=== PATIENT | male | born 1940 | race African-American/Black ===

== ENCOUNTER 2016-12-01 06:50 | Day surgery (SDC) | payer OTHER, MEDICARE ==
[2016-12-01] MEDS ORDERED: NS 500 ML IV 500 ML IV ONE (07:24)
[2016-12-01] MEDS ORDERED: TETRACAINE 0.5% OPHTH 1 DOSE AFFEYE ONE ×4 (07:55→10:38)
[2016-12-01] MEDS ORDERED: VIGAMOX 0.5% OPHTH 1 DOSE AFFEYE ONE ×5 (07:56→10:51)
[2016-12-01] MEDS ORDERED: PROLENSA OPHTH 1 DOSE AFFEYE ONE (08:07)
[2016-12-01] MEDS ORDERED: ALPHAGAN-P OPHTH 1 DOSE AFFEYE ONE (08:08)
[2016-12-01] MEDS ORDERED: VISINE-A OPHTH 1 DOSE AFFEYE ONE (08:09)
[2016-12-01] MEDS ORDERED: AK-DILATE 2.5% OPHTH 1 DOSE OP ONE ×4 (08:10→08:13)
[2016-12-01] MEDS ORDERED: MYDRIACIL OPHTH 1 DOSE AFFEYE ONE ×4 (08:10→08:13)
[2016-12-01] MEDS ORDERED: CYCLOGYL 1% OPHTH 1 DOSE OP ONE ×4 (08:10→08:13)
[2016-12-01] MEDS ORDERED: BETADINE OPHTH SOLN 5% EACHEYE ONE (10:22)
[2016-12-01] MEDS ORDERED: XYLOCAINE-MPF 1% IJ ONE ×2 (10:26→10:38)
[2016-12-01] MEDS ORDERED: ADRENALINE CHL INJ IJ ONE ×2 (10:26→10:38)
[2016-12-01] MEDS ORDERED: DUOVISC IO ONE ×2 (10:26→10:38)
[2016-12-01] MEDS ORDERED: BSS OPHTH (PLAIN) 500 ML with VANCOMYCIN HCL 500 MG VIAL 25 MG, ADRENALINE CHL INJ 1 MG IR ONE ×6 (10:26)
[2016-12-01 13:37] VITALS: BP 115/76
[2016-12-01] MEDS ORDERED: DIPRIVAN VIAL ONE (13:47)
== END 2016-12-01 11:15 | disposition home or self-care (01) ==
LOC: SURG1 06:50
PROVIDERS: ATTEND Ophthalmology
PROC: 08RJ3JZ Replacement of Right Lens with Synthetic Substitute, Percutaneous Approach (ICD-10-PCS; principal; 2016-12-01 12:30)
PROC: 08DJ3ZZ Extraction of Right Lens, Percutaneous Approach (ICD-10-PCS; principal; 2016-12-01 12:30)
DX: H25.11 Age-related nuclear cataract, right eye (principal); H25.011 Cortical age-related cataract, right eye
CPT/HCPCS: 99100; A4217; J0170; J3370; J3490

== ENCOUNTER 2016-12-22 10:26 | Day surgery (SDC) | payer OTHER, MEDICARE ==
[2016-12-22] MEDS ORDERED: NS 500 ML IV 500 ML IV ONE (10:35)
[2016-12-22] MEDS ORDERED: TETRACAINE 0.5% OPHTH 1 DOSE AFFEYE ONE ×4 (10:55→14:31)
[2016-12-22] MEDS ORDERED: VIGAMOX 0.5% OPHTH 1 DOSE AFFEYE ONE ×5 (10:56→14:43)
[2016-12-22] MEDS ORDERED: PROLENSA OPHTH 1 DOSE AFFEYE ONE (11:07)
[2016-12-22] MEDS ORDERED: ALPHAGAN-P OPHTH 1 DOSE AFFEYE ONE (11:08)
[2016-12-22] MEDS ORDERED: MYDRIACIL OPHTH 1 DOSE AFFEYE ONE ×4 (11:09→11:12)
[2016-12-22] MEDS ORDERED: CYCLOGYL 1% OPHTH 1 DOSE OP ONE ×4 (11:09→11:12)
[2016-12-22] MEDS ORDERED: AK-DILATE 2.5% OPHTH 1 DOSE OP ONE ×4 (11:09→11:12)
[2016-12-22] MEDS ORDERED: BETADINE OPHTH SOLN 5% EACHEYE ONE (14:12)
[2016-12-22] MEDS ORDERED: BSS OPHTH (PLAIN) 500 ML with VANCOMYCIN HCL 500 MG VIAL 25 MG, ADRENALINE CHL INJ 1 MG IR ONE ×6 (14:17)
[2016-12-22] MEDS ORDERED: ADRENALINE CHL INJ IJ ONE ×2 (14:17→14:31)
[2016-12-22] MEDS ORDERED: XYLOCAINE-MPF 1% IJ ONE ×2 (14:17→14:31)
[2016-12-22] MEDS ORDERED: DUOVISC IO ONE ×2 (14:17→14:31)
[2016-12-22 15:17] VITALS: BP 115/60
[2016-12-22] MEDS ORDERED: DIPRIVAN VIAL ONE (15:57)
== END 2016-12-22 15:05 | disposition home or self-care (01) ==
LOC: SURG1 10:26
PROVIDERS: ATTEND Ophthalmology
PROC: 08RK3JZ Replacement of Left Lens with Synthetic Substitute, Percutaneous Approach (ICD-10-PCS; principal; 2016-12-22 22:15)
PROC: 08DK3ZZ Extraction of Left Lens, Percutaneous Approach (ICD-10-PCS; principal; 2016-12-22 22:15)
DX: H25.12 Age-related nuclear cataract, left eye (principal); H25.012 Cortical age-related cataract, left eye
CPT/HCPCS: 99100; A4217; J0170; J3370; J3490